=== PATIENT | male | born 1990 | race American Indian/Alaskan Native ===

== ENCOUNTER 2017-04-05 11:10 | Emergency (ER) | payer SELFPAY ==
--- NOTE | 2017-04-05 14:19 | Emergency Department Report ---
ED Eye Problem HPI - General Chief complaint: Eye Problems Stated complaint: POSS PINK EYE Time Seen by Provider: 04/05/17 13:45 Source: patient Mode of arrival: Ambulatory Limitations: No Limitations - History of Present Illness Initial comments: PT states he is currently treating his son for pink eye. PT states yesterday he developed redness and irritation to R eye. PT states this am, it spread to L eye and when he woke up both eyes were crusted and matted shut. Pt states he does not wear contacts MD chief complaint: eye redness -: Gradual, days(s) (2) Location: right eye (worse than left ), both eyes Place: home If Injury: none Eye Symptoms: redness, discharge Severity: moderate Severity scale (0 -10): 6 If Pain, Quality: other (irritating ) Consistency: constant Treatments Prior to Arrival: none - Related Data Previous Rx's Medication Instructions Recorded Last Taken Type Ibuprofen [Motrin] 600 mg PO Q8H PRN #15 tablet 04/05/17 Unknown Rx Tobramycin 0.3% [Tobrex] 2 drop OU QID #1 bottle 04/05/17 Unknown Rx Allergies Allergy/AdvReac Type Severity Reaction Status Date / Time No Known Allergies Allergy Verified 02/29/16 07:32 ED Review of Systems ROS: Stated complaint: POSS PINK EYE Other details as noted in HPI Comment: All other systems reviewed and negative Constitutional: denies: chills, fever Eyes: eye pain, eye discharge. denies: vision change ENT: denies: congestion Respiratory: denies: cough Gastrointestinal: denies: nausea, vomiting ED Past Medical Hx - Social History Smoking Status: Current Every Day Smoker Substance Use Type: None - Medications Home Medications: Home Medications Medication Instructions Recorded Confirmed Last Taken Type Ibuprofen [Motrin] 600 mg PO Q8H PRN #15 tablet 04/05/17 Unknown Rx Tobramycin 0.3% [Tobrex] 2 drop OU QID #1 bottle 04/05/17 Unknown Rx ED Physical Exam - General Limitations: No Limitations General appearance: alert, in no apparent distress - Head Head exam: Present: atraumatic, normocephalic, normal inspection - Eye Eye exam: Present: PERRL, EOMI, conjunctival injection (renato ). Absent: periorbital swelling, periorbital tenderness Pupils: Present: normal accommodation - Expanded Eye Exam Expanded Pupils: Regular, Round: Bilateral Sclera/Conjunctival: Injection: Bilateral, Exudate: Right Visual acuity (R) = 20/: 20 Visual acuity (L) = 20/: 25 With correction: No - ENT ENT exam: Present: normal exam, normal external ear exam - Neck Neck exam: Present: normal inspection, full ROM - Cardiovascular Cardiovascular Exam: Present: regular rate, normal rhythm - Extremities Exam Extremities exam: Present: normal inspection, full ROM - Back Exam Back exam: Present: normal inspection, full ROM - Neurological Exam Neurological exam: Present: alert, oriented X3 - Psychiatric Psychiatric exam: Present: normal affect, normal mood - Skin Skin exam: Present: warm, dry, intact, normal color ED Course Vital Signs 04/05/17 04/05/17 12:20 14:27 Temperature 98.4 F Pulse Rate 75 60 Respiratory 14 16 Rate Blood Pressure 125/89 Blood Pressure 127/78 [Left] O2 Sat by Pulse 100 100 Oximetry - Reevaluation(s) Reevaluation #1: 04/05/17 14:18 pt aware of plan of care. pt verbalizes understanding of dx. pt has no questions at this time - Pulse Oximetry Interpretation Digit-Finger Initial Pulse Oximetry Readin Actions Taken: none ED Medical Decision Making - Differential Diagnosis conjunctitivis Critical Care Time: No Critical care attestation.: If time is entered above; I have spent that time in minutes in the direct care of this critically ill patient, excluding procedure time. ED Disposition Clinical Impression: Acute conjunctivitis Qualifiers: Acute conjunctivitis type: unspecified Laterality: bilateral Qualified Code(s) : H10.33 - Unspecified acute conjunctivitis, bilateral Disposition: DC-01 TO HOME OR SELFCARE Is pt being admited?: No Does the pt Need Aspirin: No Condition: Stable Instructions: Conjunctivitis (ED) Additional Instructions: good hand washing Prescriptions: Ibuprofen [Motrin] 600 mg PO Q8H PRN #15 tablet PRN Reason: Pain Tobramycin 0.3% [Tobrex] 2 drop OU QID #1 bottle Referrals: PRIMARY CARE, [Primary Care Provider] - 3-5 Days Forms: Work/School Release Form(ED) Time of Disposition: 14:20
[2017-04-05 14:27] VITALS: BP 127/78
== END 2017-04-05 14:29 | disposition home or self-care (01) ==
LOC: ED 11:10
DX: H10.33 Unspecified acute conjunctivitis, bilateral (principal); F17.200 Nicotine dependence, unspecified, uncomplicated

== ENCOUNTER 2017-08-19 22:20 | Emergency (ER) | payer SELFPAY ==
[2017-08-20] MEDS ORDERED: MOTRIN ONE (03:23)
[2017-08-20] MEDS ORDERED: MOTRIN PO ONE (03:24)
[2017-08-20 06:51] VITALS: BP 121/84
[2017-08-20] MEDS ORDERED: TYLENOL #3 PO ONE (07:30)
[2017-08-20] MEDS ORDERED: TRIMOX PO ONE (07:30)
--- NOTE | 2017-08-20 07:31 | Emergency Department Report ---
HPI - General Chief Complaint: Dental/Oral Time Seen by Provider: 08/20/17 07:26 - HPI HPI: The patient is a 27-year-old male who presents to ED complaining of 8/10 pain in the right side of his mouth x 3 days . Patient states that the pain started 3 days ago and has increased in severity over the last 2 days. The pain is exacerbated by eating and opening of the mouth. Patient states the pain is alleviated initially with pain medication such as motrin but comes back. Patient states that it radiates towards his ear. Patient describes a as a throbbing, pressure-like sensation. Patient states otherwise well and has no other complaints. Patient has had no fevers and no chills. No chest pain, no shortness of breath. No abdominal pain. No shortness of breath or recent trauma to the face. ED Past Medical Hx - Past Medical History Previous Medical History?: No - Surgical History Past Surgical History?: No - Social History Smoking Status: Never Smoker Substance Use Type: None - Medications Home Medications: Home Medications Medication Instructions Recorded Confirmed Last Taken Type Tobramycin 0.3% [Tobrex] 2 drop OU QID #1 bottle 04/05/17 Unknown Rx Acetaminophen/Codeine [Tylenol 1 tab PO Q6H #8 tablet 08/20/17 Unknown Rx /Codeine # 3 tab] Amoxicillin [Trimox CAP] 500 mg PO BID #20 capsule 08/20/17 Unknown Rx Ibuprofen [Motrin 600 MG tab] 600 mg PO Q8H PRN #15 tablet 08/20/17 Unknown Rx ED Review of Systems ROS: Stated complaint: TOOTHACHE Other details as noted in HPI Constitutional: denies: chills, fever Eyes: denies: eye pain, eye discharge, vision change ENT: dental pain. denies: ear pain, throat pain Respiratory: denies: cough, shortness of breath, wheezing Cardiovascular: denies: chest pain, palpitations Endocrine: no symptoms reported Gastrointestinal: denies: abdominal pain, nausea, diarrhea Genitourinary: denies: urgency, dysuria Musculoskeletal: denies: back pain, joint swelling, arthralgia Skin: denies: rash, lesions Neurological: denies: headache, weakness, paresthesias Psychiatric: denies: anxiety, depression Hematological/Lymphatic: denies: easy bleeding, easy bruising Physical Exam - Physical Exam Vital Signs: Vital Signs 08/19/17 08/20/17 23:38 06:50 Temperature 98.6 F 97.8 F Pulse Rate 74 81 Respiratory 18 16 Rate Blood Pressure 125/84 Blood Pressure 121/84 [Right] O2 Sat by Pulse 98 100 Oximetry Physical Exam: GENERAL: Alert and oriented x3, no apparent distress, Normal Gait, atraumatic. HEAD: Head is normocephalic and a-traumatic. EARS: symetrical, atraumatic, non tender, ear canal clear and moderate cerumen, tympanic membrance non inflamed. gross auditory nml bilaterally. NOSE: Nose symetrical, Nontender,Nares appeared normal. MOUTH:Mouth is well hydrated and without lesions. Tonsils nonerythematous or swollen, Uvula midline, Tongue not elevated. Mucous membranes are moist. Posterior pharynx clear, no exudate or lesions. Patent airways. No gingival enlargement, tenderness palpation to 2 #14. No gingival enlargement, no bleeding, no gingival abscess visualized. NECK: Supple. Non edematous. No lymphadenopathy or thyromegaly. LUNGS: Symetrical with respiration, No wheezing, no rales or crackles, CTAB. HEART: S1, S2 present, regular rate and rhythm without murmur. Non tender to palpation SKIN: Warm and dry, No lesions, No ulceration or induration present. ED Course Vital Signs 08/19/17 08/20/17 23:38 06:50 Temperature 98.6 F 97.8 F Pulse Rate 74 81 Respiratory 18 16 Rate Blood Pressure 125/84 Blood Pressure 121/84 [Right] O2 Sat by Pulse 98 100 Oximetry ED Medical Decision Making - Medical Decision Making 27-year-old male who presents with left-sided Facial pain secondary to odontogenic caries ED course: Patient received 1000 mg of amoxicillin, 1 tablet of Tylenol No. 3. Odontogenic infection versus ear infection. Based upon history and physical examination, pain is a result of an infection of tooth number 14, 15 and that the pain Pt feels on the left side of his face and towards the ear is referred pain from this infectious process. Pt has no evidence of acute impending airway compromise. At this point, patient will be discharged home on some antibiotics and pain trial, he will do well with an outpatient course of antibiotics. Follow up with the Dental Clinic as referred Vital signs are normal patient is in no acute distress. Pt had an effect uneventful ED stay Critical care attestation.: If time is entered above; I have spent that time in minutes in the direct care of this critically ill patient, excluding procedure time. ED Disposition Clinical Impression: Toothache, Pain due to dental caries Disposition: TO HOME OR SELFCARE Is pt being admited?: No Does the pt Need Aspirin: No Condition: Stable Instructions: Toothache (ED), Dental Caries (ED) Additional Instructions: Follow-up with the dental clinic as discussed Complete antibiotic dose Prescriptions: Acetaminophen/Codeine [Tylenol /Codeine # 3 tab] 1 tab PO Q6H #8 tablet Amoxicillin [Trimox CAP] 500 mg PO BID #20 capsule Ibuprofen [Motrin 600 MG tab] 600 mg PO Q8H PRN #15 tablet PRN Reason: Pain Referrals: PRIMARY CARE, [Primary Care Provider] - 3-5 Days [facility] [Outside] - 3-5 Days [facility] [Outside] - 3-5 Days [facility] [Outside] - 3-5 Days [facility] [Outside] - 3-5 Days Forms: Accompanied Note, Work/School Release Form(ED) Time of Disposition: 07:48
== END 2017-08-20 08:11 | disposition home or self-care (01) ==
LOC: ED 22:20
DX: K02.9 Dental caries, unspecified (principal)
CPT/HCPCS: 99282

== ENCOUNTER 2017-08-23 17:43 | Emergency (ER) | payer SELFPAY ==
[2017-08-23] MEDS ORDERED: MOTRIN PO ONE (21:32)
--- NOTE | 2017-08-23 21:32 | Emergency Department Report ---
HPI - General Chief Complaint: Dental/Oral Time Seen by Provider: 08/23/17 19:43 - HPI HPI: Patient here reports that he is having toothache and said that he was here on and was placed on ibuprofen, amoxicillin and Tylenol with Codeine. He said he called his dentist at [facility] and they wanted to complete antibiotic before they do any dental work. Patient said he has appointment scheduled for 08/30/2017 but [facility]. Patient reports that he got 8 tablet and they're all gone. He said that he would just like to have some Tylenol 3 to take at night so he can sleep until he gets to see his dentist. He denies any fever or chills. Pain is 7 out of 10 to right upper tooth. Denies any nausea or vomiting. Denies any sore throat. Denies any sinus pain or pressure. Denies any drooling. Denies any cough or congestion. He said pain is achy and medication that was given helped the pain. He said this pain is worse at night. ED Past Medical Hx - Past Medical History Previous Medical History?: No - Surgical History Past Surgical History?: No - Family History Family history: no significant - Social History Smoking Status: Never Smoker Substance Use Type: None - Medications Home Medications: Home Medications Medication Instructions Recorded Confirmed Last Taken Type Tobramycin 0.3% [Tobrex] 2 drop OU QID #1 bottle 04/05/17 Unknown Rx Amoxicillin [Trimox CAP] 500 mg PO BID #20 capsule 08/20/17 Unknown Rx Ibuprofen [Motrin 600 MG tab] 600 mg PO Q8H PRN #15 tablet 08/20/17 Unknown Rx Acetaminophen/Codeine [Tylenol 1 - 2 tab PO QHS PRN 14 Days #7 08/23/17 Unknown Rx /Codeine # 3 tab] tablet Ibuprofen [Motrin 800 MG tab] 800 mg PO Q8H PRN 7 Days #21 tablet 08/23/17 Unknown Rx ED Review of Systems ROS: Stated complaint: TOOTHACHE Other details as noted in HPI Comment: All other systems reviewed and negative Constitutional: no symptoms reported. denies: chills, fever Eyes: denies: eye pain, eye discharge ENT: dental pain. denies: ear pain, throat pain, congestion Respiratory: no symptoms reported Cardiovascular: denies: chest pain, palpitations, edema, syncope Gastrointestinal: denies: abdominal pain, nausea, vomiting, diarrhea, constipation Skin: denies: rash Neurological: denies: headache Physical Exam - Physical Exam Vital Signs: Vital Signs 08/23/17 18:00 Temperature 98.9 F Pulse Rate 74 Respiratory 18 Rate Blood Pressure 134/93 O2 Sat by Pulse 98 Oximetry General: This is a 27-year-old male well-nourished well-developed in no acute distress. Physical Exam: Head: Normocephalic, atraumatic, no abrasion, no bruising and no contusion. Eyes: Biateral pupils equal and reactive to light, bilateral EOM intact.. Bilateral conjunctival and sclera without injection, normal accommodation. No nystagmus Ears: Bilateral TMs pearly waldron, bilateral nasal mucosa normal without any drainage. No maxillary or frontal sinus tenderness. No mastoid bone tenderness. Bilateral tract is nontender to palpate Mouth: Moist, no pharyngeal exudate or erythema. Uvula is midline and tongue is normal. Oral airways patent. Patient with mild gingival inflammation and tenderness to palpation around tooth #2. No induration noted. No facial swelling and multiple dental caries. Neck: Supple, No Cervical adenopathy, full range of motion and no C-spine tenderness. No swelling or tracheal deviation normal reflexes Cardiovascular: S1, S2. Regular rate and rhythm. No murmur. Capillary refill is less then 3 seconds. Lungs: Clear to auscultate bilaterally. No rhonchi, wheezes or rales. No chest wall tenderness Extremities: No clubbing, cyanosis or edema. +2 pulses. No neurovascular compromise Skin: Clean, dry and intact. No rash or lesions. Psych: Normal mood and behavior. ED Course Vital Signs 08/23/17 18:00 Temperature 98.9 F Pulse Rate 74 Respiratory 18 Rate Blood Pressure 134/93 O2 Sat by Pulse 98 Oximetry - Reevaluation(s) Reevaluation #1: 08/23/17 22:52 Patient given Motrin 800 mg by mouth for toothache in emergency room. ED Medical Decision Making - Medical Decision Making ED course: Pt here complaining of toothache and he said he was here 2 days ago which was verified he was given 8 Tylenol tablets for toothache and was also placed on amoxicillin and ibuprofen. Patient said that medication and has ran out and the dentist will not see him until he completes antibiotic. He said he has a appointment at [facility] 08[facility]2017 and he just wants something to relieve his pain at night. He said this pain is worse at night. Patient does not have any fever or chills. No signs of abscess. He has mild gingivitis, multiple dental caries and tenderness to palpate around tooth #2. Discussed with patient that I will prescribe Tylenol 3 for him only to take at night until he can see his dentist and I'll also change his Motrin 600 mg 800 mg which she'll take in the day time. Patient agrees with plan and he was given an ibuprofen 800 mg emergency room. I also discussed with him that he needs to continue to take his antibiotic as prescribed. Discharge home with prescription for Tylenol No. 3 and ibuprofen 800. Critical care attestation.: If time is entered above; I have spent that time in minutes in the direct care of this critically ill patient, excluding procedure time. ED Disposition Clinical Impression: Pain, dental, Dental caries, Gingivitis Disposition: TO HOME OR SELFCARE Is pt being admited?: No Does the pt Need Aspirin: No Condition: Stable Instructions: Dental Caries (ED), Toothache (ED), Gingivitis (ED) Additional Instructions: Please keep your dental appointment Fredy anderson on Continue to take amoxicillin as prescribed Please do not drive or operate heavy machinery while taking Tylenol No. 3 as this medication causes drowsiness He can take Motrin during the day and only take Tylenol 3 during the night. We will not be able to refill your medication so please take medication only at night time as discussed. Prescriptions: Acetaminophen/Codeine [Tylenol /Codeine # 3 tab] 1 - 2 tab PO QHS PRN 14 Days # 7 tablet PRN Reason: Pain , Severe (7-10) Ibuprofen [Motrin 800 MG tab] 800 mg PO Q8H PRN 7 Days #21 tablet PRN Reason: Pain, Mild (1-3) Referrals: [facility] [Outside] - 3-5 Days Your, Dentist [Other] - 3-5 Days Forms: Work/School Release Form(ED)
[2017-08-23 23:06] VITALS: BP 132/79
== END 2017-08-23 23:05 | disposition home or self-care (01) ==
LOC: ED 17:43
DX: K02.9 Dental caries, unspecified (principal); K05.10 Chronic gingivitis, plaque induced
CPT/HCPCS: 99282

== ENCOUNTER 2020-12-17 17:51 | Emergency (ER) | payer SELFPAY ==
[2020-12-17] MEDS ORDERED: ASPIRIN 81 MG TAB CHEW PO ONE (18:33)
--- NOTE | 2020-12-17 18:37 | Emergency Department Report ---
History of Present Illness - General Chief Complaint: Overdose Stated Complaint: HEART PALPITATIONS Time Seen by Provider: 12/17/20 18:26 Source: patient, EMS Mode of arrival: Stretcher Limitations: No Limitations - History of Present Illness Initial Comments: Patient is 30 years old male with no significant past medical history. Patient brought to the emergency room stating that he has been overdose on cocaine. Patient stated that this is an accidental overdose. He stated that he wanted to get high. Patient denied any suicidal or homicidal ideation. Patient denied any visual or auditory hallucination. Patient is complaining of chest pain and palpitation. Patient denied any headache or neck pain. No other symptoms. MD Complaint: accidental overdose -: Sudden How Overdose Was Discovered: called 911 Context: Accidental Overdose: wanted to get high Treatments Prior to Arrival: none - Related Data Previous Rx's Medication Instructions Recorded Last Taken Type Tobramycin 0.3% [Tobrex] 2 drop OU QID #1 bottle 04/05/17 Unknown Rx Amoxicillin [Trimox CAP] 500 mg PO BID #20 capsule 08/20/17 Unknown Rx Ibuprofen [Motrin 600 MG tab] 600 mg PO Q8H PRN #15 tablet 08/20/17 Unknown Rx Acetaminophen/Codeine [Tylenol 1 - 2 tab PO QHS PRN 14 Days #7 08/23/17 Unknown Rx /Codeine # 3 tab] tablet Ibuprofen [Motrin 800 MG tab] 800 mg PO Q8H PRN 7 Days #21 tablet 08/23/17 Unknown Rx Allergies Allergy/AdvReac Type Severity Reaction Status Date / Time No Known Allergies Allergy Verified 02/29/16 07:32 ED Review of Systems ROS: Stated complaint: HEART PALPITATIONS Other details as noted in HPI Comment: All other systems reviewed and negative Constitutional: denies: chills, fever Respiratory: denies: cough, orthopnea, shortness of breath, SOB with exertion, SOB at rest, wheezing Cardiovascular: chest pain, palpitations Gastrointestinal: denies: abdominal pain, nausea, vomiting Musculoskeletal: denies: back pain Neurological: denies: headache, weakness, numbness, paresthesias, confusion Psychiatric: anxiety. denies: depression, auditory hallucinations, visual hallucinations, homicidal thoughts, suicidal thoughts ED Past Medical Hx - Past Medical History Previous Medical History?: No Additional medical history: cocaine abuse - Surgical History Past Surgical History?: No - Social History Smoking Status: Current Every Day Smoker Substance Use Type: Alcohol, Cocaine - Medications Home Medications: Home Medications Medication Instructions Recorded Confirmed Last Taken Type Tobramycin 0.3% [Tobrex] 2 drop OU QID #1 bottle 04/05/17 Unknown Rx Amoxicillin [Trimox CAP] 500 mg PO BID #20 capsule 08/20/17 Unknown Rx Ibuprofen [Motrin 600 MG tab] 600 mg PO Q8H PRN #15 tablet 08/20/17 Unknown Rx Acetaminophen/Codeine [Tylenol 1 - 2 tab PO QHS PRN 14 Days #7 08/23/17 Unknown Rx /Codeine # 3 tab] tablet Ibuprofen [Motrin 800 MG tab] 800 mg PO Q8H PRN 7 Days #21 tablet 08/23/17 Unknown Rx ED Physical Exam - General Limitations: No Limitations General appearance: alert, in no apparent distress, anxious - Head Head exam: Present: atraumatic, normocephalic, normal inspection - Eye Eye exam: Present: normal appearance, PERRL - ENT ENT exam: Present: normal exam, normal orophraynx, mucous membranes moist - Neck Neck exam: Present: normal inspection, full ROM. Absent: tenderness, meningismus - Respiratory Respiratory exam: Present: normal lung sounds bilaterally - Cardiovascular Cardiovascular Exam: Present: tachycardia. Absent: systolic murmur, diastolic murmur - GI/Abdominal GI/Abdominal exam: Present: soft, normal bowel sounds. Absent: distended, tenderness, guarding, rebound, rigid, organomegaly, mass, pulsatile mass, hernia - Extremities Exam Extremities exam: Present: normal inspection, full ROM, normal capillary refill. Absent: tenderness - Back Exam Back exam: Present: normal inspection, full ROM. Absent: CVA tenderness (R), CVA tenderness (L) - Neurological Exam Neurological exam: Present: alert, oriented X3, CN II-XII intact, normal gait, reflexes normal. Absent: motor sensory deficit - Psychiatric Psychiatric exam: Present: normal mood, anxious. Absent: depressed, agitated, manic, homicidal ideation, suicidal ideation - Skin Skin exam: Present: warm, intact, normal color ED Course Vital Signs 12/17/20 12/17/20 12/17/20 18:06 18:16 18:30 Temperature 98.2 F Pulse Rate 126 H 129 H 125 H Respiratory 13 13 16 Rate Blood Pressure 125/77 125/77 144/80 Blood Pressure [Left] O2 Sat by Pulse 99 98 99 Oximetry 12/17/20 12/17/20 12/17/20 18:46 19:00 19:16 Temperature 98.1 F Pulse Rate 131 H 115 H 117 H Respiratory 15 26 H 23 Rate Blood Pressure 130/79 134/86 135/94 Blood Pressure 132/95 [Left] O2 Sat by Pulse 97 98 98 Oximetry 12/17/20 12/17/20 12/17/20 19:30 19:46 20:00 Temperature Pulse Rate 139 H 117 H 113 H Respiratory 20 13 26 H Rate Blood Pressure 131/89 132/95 128/78 Blood Pressure [Left] O2 Sat by Pulse 99 98 97 Oximetry 12/17/20 12/17/20 20:16 22:06 Temperature Pulse Rate 120 H 97 H Respiratory 20 22 Rate Blood Pressure 132/95 Blood Pressure 136/81 [Left] O2 Sat by Pulse 96 99 Oximetry ED Medical Decision Making - Lab Data Result diagrams: 12/17/20 18:32 12/17/20 18:32 - EKG Data -: EKG Interpreted by Sc EKG shows normal: sinus rhythm Rate: tachycardia - EKG Data Interpretation: no acute changes - Medical Decision Making Patient is 30 years old male with no significant past medical history. Patient brought to the emergency room stating that he has been overdose on cocaine. Patient stated that this is an accidental overdose. He stated that he wanted to get high. Patient denied any suicidal or homicidal ideation. Patient denied any visual or auditory hallucination. Patient is complaining of chest pain and palpitation. Patient denied any headache or neck pain. No other symptoms. EKG shows sinus tachycardia. Labs reviewed and is unremarkable including negat rachid troponin x2. UDS is positive for cocaine. Patient received Ativan and normal saline. Patient stated that he is feeling much better. Chest pain and shortness of breath are completely resolved. Patient has been observed in the emergency room for more than 6 hours. Patient counseled about drug abuse. Patient advised to return to the ER if he develop any new symptoms. Critical care attestation.: If time is entered above; I have spent that time in minutes in the direct care of this critically ill patient, excluding procedure time. ED Disposition Clinical Impression: Acute chest pain, Cocaine abuse Disposition: DC- TO HOME OR SELFCARE Is pt being admited?: No Condition: Stable Instructions: Substance Use Disorder, Nonspecific Chest Pain, Adult, Chest Pain (ED) Referrals: PRIMARY CARE,MD [Primary Care Provider] - 3-5 Days
[2020-12-17] MEDS: LORazepam 2 MG/ML VIAL IV ONE ×2 (18:51→19:02)
[2020-12-17 19:02] LABS: BUN/Creatinine Ratio 9; Blood Urea Nitrogen 10 mg/dL (9-20); Calcium 9.9 mg/dL (8.4-10.2); Hemolysis Index 28
[2020-12-17 19:06] LABS: Alanine Aminotransferase 29 units/L (7-56); Albumin 5.2 g/dL (3.9-5)
[2020-12-17 19:13] LABS: Bilirubin,Direct < 0.2 mg/dL (0-0.2)
[2020-12-17 19:47] LABS: Basophils % (Auto) 0.5 % (0.0-1.8); Hematocrit 47.1 % (35.5-45.6); Hemoglobin 16.4 gm/dl (11.8-15.2); Lymphocytes # (Auto) 1.7 K/mm3 (1.2-5.4); Lymphocytes % (Auto) 16.6 % (13.4-35.0); Mean Corpuscular HGB Conc 35 % (32-34); Mean Corpuscular Volume 92 fl (84-94); Monocytes # (Auto) 0.9 K/mm3 (0.0-0.8); Monocytes % (Auto) 8.9 % (0.0-7.3); Platelet Count 190 K/mm3 (140-440); Red Blood Count 5.13 M/mm3 (3.65-5.03); Red Cell Distribution Width 13.6 % (13.2-15.2)
[2020-12-17 20:06] LABS: Bilirubin,Urine NEG (Negative); Blood,Urine SM (Negative); Color,Urine Yellow (Yellow); Mucus,Urine FEW /HPF; Urobilinogen,Urine < 2.0 mg/dL (<2.0); WBC,Urine < 1.0 /HPF (0.0-6.0)
[2020-12-17 20:14] LABS: Amphetamine Screen,Urine PRESUMPTIVE NEGATIVE; Benzodiazepines Screen,Urine PRESUMPTIVE NEGATIVE; Cannabinoid Screen,Urine PRESUMPTIVE NEGATIVE; Cocaine Screen,Urine PRESUMPTIVE POSITIVE; Methadone Screen,Urine PRESUMPTIVE NEGATIVE; Opiate Screen,Urine PRESUMPTIVE NEGATIVE
[2020-12-17] MEDS ORDERED: SODIUM CHLORIDE 0.9% 1000 ML 1,000 ML ONE (20:20)
[2020-12-17] MEDS ORDERED: SODIUM CHLORIDE 0.9% 1000 ML 1,000 ML IV ONE (20:38)
[2020-12-18 00:41] VITALS: BP 134/84
--- NOTE | 2020-12-18 14:02 | Electrocardiograph Report ---
[facility] Test Date: 2020-12-17 Test Time: 18:29:17 Pat Name: ORTEGA DENTON Department: Room: Gender: M Signal Technician: RYAN : 1990 Requested By: TATA LINDSAY Order Number: [id number] Reading MD: Teto Rosales Measurements Intervals [place] Rate: 126 P: 79 DE: 149 QRS: 28 QRSD: 86 T: 71 QT: 245 QTc: 355 Interpretive Statements Sinus tachycardia Borderline ST elevation, anterolateral leads No previous ECG available for comparison Electronically Signed On 12-18-2020 11:02:10 PDT by Teto Rosales
== END 2020-12-18 00:42 | disposition home or self-care (01) ==
LOC: ED 17:51
DX: F14.10 Cocaine abuse, uncomplicated (principal); R07.89 Other chest pain; F17.200 Nicotine dependence, unspecified, uncomplicated; Z79.899 Other long term (current) drug therapy
CPT/HCPCS: 36415; 80048; 80076; 80307; 81001; 84484; 85025; 93005; 96361; 96374; 99284; J2060; J7030; 80320; G0480